=== PATIENT | male | born 1970 | race Caucasian/White ===

== ENCOUNTER → 2016-08-11 | Outpatient (CLI) | payer MEDICARE, OTHER ==
[~2016-08-11] MED LIST: ABILIFY2 MG PO; ABILIFY5 MG PO; ACETAMINOPHEN PO; ACTOS PO; ALLEGRA ALLERG180 MG PO; ALLEGRA PO; ALLEGRA180 MG PO; AMARYL PO; AMIODARONE PO; ANIMAL SHAPES1 EAC2 PO; ASCORBIC ACID500 M2 PO; ASPIRIN EC81 M1 PO; ASPIRIN PO; ASPIRIN81 M2 PO; ASPIRIN81 MG PO; BACLOFEN10 MG PO; CALCIUM 600 +1 EAC3 PO; CELEXA10 MG PO; CERTAGEN PO; CLARITIN10 MG PO; COZAAR PO; CRESTOR PO; CRESTOR10 MG PO; CYMBALTA PO; CYMBALTA30 MG PO; DEPO-TESTOTERO100 MG IM; DESONIDE TP; EXENATIDE INJ; FENOFIBRATE160 MG; FENOFIBRATE160 MG PO; FERROUS SULFATE1 TAB PO; FISH OIL 1,0001 CAP PO; FISH OIL500 MG; FISH-FLAX-BORA1 EACH PO; FLAXSEED-FISH-400 MG PO; GNP TRIPLE OME1 EACH PO; HUMALOG100 U/ML SUBQ; HYDROCODON-ACE1 EAC5 PO; IBUPROFEN PO; INVOKANA100 MG PO; IRON SUPPLEMENT1 TAB PO; IRON TABLETS1 TAB PO; LANTUS SOLOSTAR3 ML SUBQ; LEVEMIR FL100 UNIT/1 SUBQ; LEVEMIR SUBQ; LEVEMIR100 U/ML SUBQ; LEVOFLOXACIN500 MG PO; LIDODERM; LIDODERM30 EA; LIDODERM30 EA TOP; LIPITOR PO; LISINOPRIL PO; LISINOPRIL20 MG; LOPID600 MG PO; LORTAB 10-3251 EACH PO; MAPAP ARTHRITI650 M1 PO; METFORMIN PO; METOPROLOL TAR25 MG; METOPROLOL TAR25 MG PO; MOTRIN400 MG PO; MUCINEX DM1 TAB.SR . PO; MULTI-DAY VITAM1 TAB PO; MULTIPLE VITAM1 EAC1; MULTIPLE VITAMI1 T11 PO; NORCO 10/325 TA1 TAB PO; NORTRIPTYLINE H50 MG PO; NORVASC PO; NOVOLIN 70100 UNITS/ SUBQ; NOVOLOG FL100 UNIT/1 SUBQ; NOVOLOG100 U/M2 SUBQ; NOVOLOG100 UNIT/1; NOVOLOG7030; NOVOLOG7030 SUBQ; OMEGA 3-6-9 CO400 MG PO; OXYGEN; PANTOPRAZOLE SO40 MG; PERCOCET 10/3251 TAB; PERCOCET 10/3251 TAB PO; PERCOCET10 PO; PHENERGAN12.5 MG PO; PINDOLOL10 MG PO; PRINIVIL20 M1 PO; PROLIA60 MG/1 ML; PROLIA60 MG/1 ML INJ; PROTONIX PO; ROXICODONE30 M1 PO; SENNA S TABLET1 TAB PO; SENNA-S TABLET1 EAC1 PO; SENNA-S TABLET1 EACH PO; SENNA8.6 M1 PO; SERTRALINE HCL100 MG; SINGULAIR PO; SINGULAIR4 MG PO; SKELAXIN PO; STARLIX PO; SUDAFED PO; TAGAMET PO; TESTOSTERON100 MG/ML INJ; TOBREX5 ML OP; TRESIBA FL100 UNIT/1; TRICOR PO; TYLENOL ARTHRITIS; VICTOZA0.6 MG/0.1; VICTOZA0.6 MG/0.1 INJ; VITAMIN C; VITAMIN D 4001 UDTAB PO; VITAMIN D31000 UNI1 PO; VITAMIN D31000 UNIT PO; WELLBUTRIN SR PO; WELLBUTRIN SR150 MG PO; ZANAFLEX PO; ZOLOFT100 MG PO
== END | disposition home or self-care (01) ==
LOC: SLAB 09:49
DX: E87.5 Hyperkalemia (principal)
CPT/HCPCS: 36415; 84132

== ENCOUNTER → 2016-12-06 | Outpatient (CLI) | payer MEDICARE, OTHER ==
[2016-12-06 12:30] LABS: BASOPHIL# 0.1 X10e3 (0-0.3); BASOPHIL% 0.9 % (0-2.5); EOSINOPHIL# 0.6 X10e3 (0-0.7); EOSINOPHIL% 3.5 % (0.0-7.0); HEMATOCRIT 44.9 % (38.0-50.0); HEMOGLOBIN 14.6 gm/dL (13.0-16.0); LYMPHOCYTE# 5.5 X10e3 (1.0-3.5); LYMPHOCYTE% 34.7 % (17.0-45.0); MEAN CELL VOLUME 93.7 FL (83-96); MEAN CORPUSCULAR HEMOGLOBIN 30.4 PG (28-34); MEAN CORPUSCULAR HGB CONC 32.4 g/dL (30-36); MEAN PLATELET VOLUME 9.5 FL (6.5-11.5); MONOCYTE# 1.1 X10e3 (0-1.0); MONOCYTE% 6.7 % (3.0-12.0); NEUTROPHIL# 8.6 X10e3 (1.5-7.1); NEUTROPHIL% 54.2 % (40-75); PLATELET COUNT 439 X10e3 (140-420); RED BLOOD COUNT 4.79 X10e (3.90-5.60); RED CELL DISTRIBUTION WIDTH 13.6 % (11.0-15.5); WHITE BLOOD COUNT 15.9 X10e3 (4.0-10.5)
[2016-12-06 12:42] LABS: DIFF IND NO
[2016-12-06 12:56] LABS: ALBUMIN SERUM 3.8 g/dL (3.5-5.0); BILIRUBIN,TOTAL 0.3 mg/dL (0.2-2.0); BUN/CREATININE RATIO 22.3; CALCIUM SERUM 9.6 mg/dL (8.4-10.2); CREATININE SERUM 1.3 mg/dL (0.6-1.4); GLOM FILT RATE Estimated 65.5 mL/min (>60); POTASSIUM 4.8 mmol/L (3.5-5.1); PROTEIN TOTAL SERUM 7.5 g/dL (6.0-8.3)
[2016-12-06 13:19] LABS: THYROID STIMULATING HORMONE 1.18 uIU/ml (0.34-5.60)
[2016-12-06 14:39] LABS: FREE THYROXIN (T4) 0.94 ng/dL (0.58-1.64)
== END | disposition home or self-care (01) ==
LOC: SLAB 12:17
PROVIDERS: Specialist
DX: E55.9 Vitamin D deficiency, unspecified (principal); E11.65 Type 2 diabetes mellitus with hyperglycemia; I10 Essential (primary) hypertension
CPT/HCPCS: 36415; 80053; 80061; 82306; 83036; 84439; 84443; 85025

== ENCOUNTER 2017-01-06 10:49 | Inpatient (IN) | payer MEDICARE, OTHER ==
[~2017-01-06] VITALS: Ht 172.7 cm; Wt 104.4 kg
--- NOTE | ~2017-01-06 | CR63 ---
[facility] RADIOLOGY TEXT RESULTS PATIENT: CATRINA GAMBOA LOCATION: [facility] 309-01 : 70 UNIT #: [id number] AGE: [address]: ELISA TERRY MD SEX: M ORDER DR: [id number] [id number] E MR#: [id number] Acc #: [id number] NAME: CATRINA GAMBOA : 1970 SEX: M STUDY DATE/TIME: 01/06/2017 12:05 UNIT: SED ROOM: STUDY DESCRIPTION: CR Chest 2 View Attending Physician: Terrell Hendrix M.D. Ordering Physician: Terrell Hendrix M.D. Primary Care Physician: Augusto Solis M.D. MEDICAL IMAGING REPORT This report is preliminary unless electronic signature is present. EXAM Chest x-ray. HISTORY Tachycardia with cough for the past 2 days. COMPARISON 01/17/2014 TECHNIQUE Two views of the chest were obtained. FINDINGS There is an old compression fracture across the thoracolumbar junction unchanged from the previous examination with exaggerated kyphosis. Cardiomegaly is noted with a tortuous aorta. In the lungs pulmonary vascular markings are prominent with redistribution toward the upper lobes noted. This has increased slightly since the previous exam. No new infiltrates or effusions are seen. Cardiomegaly is noted and unchanged. IMPRESSION Cardiomegaly with mild pulmonary vascular congestion. Pulmonary vascular redistribution shows slight worsening since the previous examination. No effusions are seen. Dictated by... Francisco Spence M.D. THIS IS AN ELECTRONICALLY VERIFIED REPORT Francisco Spence M.D. at 01/09/2017 11:44 AM RLF/jt [facility] RADIOLOGY TEXT RESULTS PATIENT: CATRINA GAMBOA LOCATION: [facility] 309-01 : 70 UNIT #: [id number] AGE: [address]: ELISA TERRY MD SEX: M ORDER DR: TD: 01/06/2017 17:28 JOB #: [id number] MEDICAL IMAGING REPORT Page 1 of 1
--- NOTE | ~2017-01-06 | HP ---
Unit #: [id number] #: [id number] Patient: CATRINA GAMBOA [id number] [place], [place] [address] [id number] I MR#: [id number] NAME: CATRINA GAMBOA ROOM: 309 Age: 46 Sex: M Admission Date: 01/06/2017 : 1970 Attending Physician: Elisa Gil M.D. Primary Care Physician: Augusto Solis M.D. HISTORY AND PHYSICAL CHIEF COMPLAINT Palpitations. HISTORY OF PRESENT ILLNESS The patient is a 46-year-old male with history of autoimmune hemolytic anemia and mental retardation. Presented to the [facility] complaining of the palpitations and not feeling well for the last 2-3 days. The patient also complained of the cough associated with a low-grade fever and shortness of breath. The patient was diagnosed with left basilar pneumonia versus mild CHF at [facility] and transferred to [place] for further evaluation. The patient denies any fever and denies any chills. Positive for the nonproductive cough and is not on oxygen. The chest x-ray shows the patient has a pulmonary vascular congestion. However, the patient has been in and out of the bigeminy with the tachycardia on telemetry on the unit. PAST MEDICAL HISTORY History of autoimmune hemolytic anemia, diabetes, mental retardation, depression, anxiety, chronic kidney disease, allergic rhinitis, and hyperlipidemia. PAST SURGICAL HISTORY History of a right foot osteomyelitis, right thumb surgery, tonsillectomy, splenectomy, left knee fracture, patellar tendon (1) , ear tubes, and right shoulder surgery. MEDICATIONS Patient is on: 1. Abilify. 2. Acetaminophen. 3. Aspirin. 4. Baclofen. 5. Lortab. 6. Nortriptyline. 7. Protonix. 8. Prinivil. 9. Metoprolol. 10. Lipitor. 11. TriCor. 12. Iron tablets. 13. Nalcrest acids. 14. Multivitamin. 15. Singulair. 16. Starlix. Unit #: [id number] #: [id number] Patient: CATRINA GAMBOA 17. NovoLog. 18. Oxygen. 19. Cymbalta. 20. Insulin. 21. Phenergan. 22. Prolia. 23. Pseudoephedrine. 24. Ascorbic acid. 25. Vitamin D3. 26. Victoza. ALLERGIES He has no known drug allergies. SOCIAL HISTORY He lives at home. His mother is the guardian. He has 24/7 care with a nurse and family. He does not smoke or consume alcohol. FAMILY HISTORY Reviewed and none. REVIEW OF SYSTEMS Positive for the palpitations. Positive for cough. Positive for shortness of breath. Denies dizziness. Denies headache. Denies nausea and vomiting. Denies abdominal pain. Other systems reviewed and none, except as mentioned above. PHYSICAL EXAMINATION GENERAL APPEARANCE: The patient is lying on the bed not in acute distress. VITAL SIGNS: Temperature 98.4, pulse 120, respiratory rate 24, blood pressure 154/85, and satting 98% at room air. HEENT: Head atraumatic and normocephalic. Pupils are equal, round, and reactive to light and accommodation. Extraocular movements are intact. NECK: Supple. LUNGS: Decreased air entry at the bases. No rhonchi. No wheezing. HEART: Regular rate and rhythm. Tachycardic. ABDOMEN: Soft. Positive bowel sounds. EXTREMITIES: No cyanosis. No clubbing. NEUROLOGIC: Alert, awake, and oriented. No gross focal motor deficit. DIAGNOSTIC STUDIES LABORATORY: WBC 16.9, hemoglobin 14.1, hematocrit 42.4, and platelets 443. Troponin less than 0.05. Lactic acid 1.2. Sodium 136, potassium 4.3, chloride 103, bicarb 25, glucose 285, BUN 20, creatinine 1.2, AST 19, ALT 21, and magnesium is 1.8. INR is 0.9. D-dimer is 180. TSH is 1.13. BNP is 117. UA is negative for bacteria. IMAGING: Chest x-ray shows cardiomegaly with mild pulmonary vascular congestion. Pulmonary vascular redistribution shows slight worsening since the previous examination. No effusions are seen. ASSESSMENT AND PLAN 1. Pulmonary vascular congestion. 2. Bigeminy. Plan to admit the patient to the observation with telemetry. Continue with IV antibiotics with Rocephin and Zithromax. He will have a Unit #: [id number] #: [id number] Patient: CATRINA GAMBOA cardiology consult with Dr. Yang who has seen in the past. Replace the electrolytes and replace the magnesium, 200 mg p.o. x1. Check the CBC and BMP in the morning. Continue with the sliding scale and Accu-Cheks. Further recommendations will follow. Dictated by Selvin Contreras TD: 01/07/2017 06:14 JOB #: [id number] HISTORY AND PHYSICAL Page 1 of 1 X ELISA GIL MD X HISTORY AND PHYSICAL
--- NOTE | ~2017-01-06 | EKG ---
PATIENT: CATRINA GAMBOA UNIT #: [id number] Ventricular Rate: 117 BPM Atrial Rate: 117 BPM P-R Interval: 166 ms QRS Duration: 88 ms Q-T Interval: 334 ms QTC Calculation(Bezet): 465 ms P [place]: 24 degrees Calculated R [place]: -5 degrees Calculated T [place]: 28 degrees Diagnosis Line: Sinus tachycardia with frequent Premature Diagnosis Line: ventricular complexes Diagnosis Line: Possible Left atrial enlargement Diagnosis Line: Left ventricular hypertrophy Diagnosis Line: Abnormal ECG Diagnosis Line: When compared with ECG of 23-SEP-2015 19:57, Diagnosis Line: Premature ventricular complexes are now Present Diagnosis Line: Confirmed by KWADWO MARSHALL MD ([id number]) on Diagnosis Line: 01/14/2017 3:16:58 PM INTERPRETING MD: JORDAN
--- NOTE | ~2017-01-06 | CO ---
Unit #: [id number] #: [id number] Patient: CATRINA GAMBOA [id number] [facility]. [place], [place] [address] [id number] I MR#: [id number] NAME: CATRINA GAMBOA ROOM: 309 Age: 46 Sex: M Admission Date: 01/06/2017 : 1970 Attending Physician: Alondra Gil M.D. Primary Care Physician: Augusto Solis M.D. CONSULTATION REPORT REASON FOR CONSULTATION REQUEST Palpitations. HISTORY OF PRESENT ILLNESS Mr. Griggs is a 46-year-old male, seen in room 309 with his he is a special needs gentleman, whom I see in the office, he will very much like to dictate his care. He has a history of fever with white count, systemic inflammatory response, autoimmune hemolytic anemia, and type 2 diabetes, and is admitted with pneumonia and palpitations. He states that he tried to get into see me today, but could not because of my office booking. He then presented to the hospital. He notes to me palpitations whenever he walks. He also notes mild dyspnea, but no chest pain, diaphoresis, or nausea. He has a history of oxygen use at night, and I had recommended CPAP therapy for him, but he has refused steadfastly. He has not had any PND, orthopnea, syncope or presyncope, angina or anginal equivalent, edema, or claudication as best I can tell. Heart rate showed in the hospital had been in the 119 range. Weight has gone up from 219 to 240 pounds in the past, and currently his weight is 233 pounds. PAST MEDICAL HISTORY 1. Fever with white count in the past, systemic inflammatory response syndrome. 2. Autoimmune hemolytic anemia. 3. Type 2 diabetes. 4. Moderate obesity. 5. Mental retardation. 6. History of acute kidney injury. 7. History of toxic metabolic encephalopathy. 8. Likely obstructive sleep apnea. 9. Difficult to control hypertension. FAMILY HISTORY Positive for premature atherosclerotic disease. Father at age 73. SOCIAL HISTORY Lives at home, caregiver 6 days a week and mother takes care of him at night. Lifelong nonsmoker. No alcohol. No drugs. Unit #: [id number] #: [id number] Patient: CATRINA GAMBOA REVIEW OF SYSTEMS I do not think an accurate review of systems is obtainable. MEDICATIONS Abilify, acetaminophen, aspirin, baclofen, Lortab 10, nortriptyline, Protonix, Prinivil 20 b.i.d., metoprolol 25 b.i.d., Lipitor 10 mg daily, Tricor 165 mg q.h.s., multivitamin, Singulair, Starlix, NovoLog, oxygen at night, Cymbalta, Lidoderm, Tresiba, Phenergan, Prolia, pseudoephedrine, ascorbic acid, vitamin D3, Victoza. PHYSICAL EXAMINATION GENERAL: Pleasant, alert, in no acute distress. VITAL SIGNS: Weight 233 pounds, height 5 feet 8 inches, BMI 36, blood pressure 160/90, heart rate is 59 and regular, respiratory rate is 16. Heart rate increased to 134 while he was walking, 124 before walking and after walking. SKIN: Warm and dry. No xanthelasma. MUSCULOSKELETAL: No missing digits. Moves easily for evaluation. NEUROLOGICAL: Appropriate mood and affect. Alert and oriented x3. HEENT: Pupils equal, round and reactive. No oral cyanosis. No icterus. NECK: Carotids clear to auscultation with no carotid bruits. Normal carotid upstroke bilaterally. Thyroid is normal in size and texture without masses or tenderness. CHEST: Clear to auscultation with no rales or wheezes. Good effort. CARDIAC: Normal point of maximum impulse. Normal S1 and S2. No S3, S4 or rub. ABDOMEN: No hepatosplenomegaly, masses or tenderness. Normal bowel sounds. No abdominal bruits heard. EXTREMITIES: No clubbing, cyanosis or edema. Excellent posterior tibial and dorsalis pedis pulses. DIAGNOSTIC STUDIES CARDIOVASCULAR STUDIES: I have reviewed the ECG which showed no acute ST changes. LABORATORY RESULTS: Creatinine is 1.2, potassium 4.3, magnesium 1.8. TSH 1.13. White blood count 16.9, hemoglobin 14.1, platelet count 443,000. Urinalysis is negative except for glucose. IMAGING STUDIES: Chest x-ray, cardiomegaly with vascular congestion. No effusions. IMPRESSION 1. Palpitations with tachycardia, likely obstructive sleep apnea, possible pneumonia. I suspect he is holding a fair amount of fluids. Belly appears distended. We will keep him on the Lopressor as dosed. We will add Cardizem 60 mg daily. We will check an echo in the morning. We will start Lasix tonight and weigh him everyday. We will restrict fluids. 2. Although he does not have any edema and he was holding water in his abdomen, this is aggravating the tachycardia. Chest x-ray did not suggest pneumonia, but this may be present based on the history. We will add Cardizem 60 mg q.6 hours, which can be made into a once daily dose. Thank you very much for this consultation. Dictated by... Jorge Yang M.D. Unit #: [id number] #: [id number] Patient: CATRINA GAMBOA TALYAR/modl TD: 01/07/2017 03:45 JOB #: [id number] CC: Augusto Solis M.D. CONSULTATION REPORT Page 1 of 1 X Jorge Yang MD X CONSULTATION REPORT
--- NOTE | ~2017-01-06 | DS ---
Unit #: [id number] #: [id number] Patient: CATRINA GAMBOA [id number] [place], [place] [address] [id number] I MR#: [id number] NAME: CATRINA GAMBOA ROOM: 309 Age: 46 Sex: M Admission Date: 01/08/2017 : 1970 Discharge Date: 01/08/2017 Attending Physician: Alondra Gil M.D. Primary Care Physician: Augutso Solis M.D. DISCHARGE SUMMARY PRINCIPAL DIAGNOSES ON DISCHARGE 1. Frequent ventricular ectopy, bigeminy. 2. Community-acquired pneumonia. 3. Volume overload. 4. Acute on chronic kidney injury. SECONDARY DIAGNOSES 1. Diabetes. 2. Hypertension. 3. History of autoimmune hemolytic anemia. 4. History of mental retardation. 5. Leukocytosis. HISTORY OF PRESENT ILLNESS/BRIEF HOSPITAL COURSE Mr. Gamboa is a 46-year-old gentleman with some degree of mental retardation who presented initially to [facility] complaining of palpitations and not feeling well for the previous 48 hours. Also, apparently a low grade fever and shortness of breath. The patient was diagnosed with a left basilar pneumonia versus mild CHF and was transferred over here. The patient was started on IV antibiotics with ceftriaxone and azithromycin. He also was noted to have some degree of pulmonary venous congestion and was on bigeminy. His troponin was normal. Cardiology was consulted and the patient was started on Cardizem at a dose of 6 mg four times a day. He was also diuresed. With this intervention, the patient's symptoms improved gradually. Unfortunately, secondary to his diuresis, the patient's creatinine increased from 1.2 to 1.5. The patient's metoprolol also was increased from 25 to 50 mg twice a day today. Cardiology also obtained a 2D echocardiogram. The results of this are pending at this time. The patient clinically has improved and is considered to be medically stable to be discharged home with close followup by his primary care physician and by cardiology. I have gone over the events of the hospitalization with the patient's mother and also gone over the discharge medications with her. MEDICATIONS UPON DISCHARGE 1. Cymbalta 30 mg p.o. daily. 2. Nortriptyline 50 mg p.o. q. h.s. 3. Starlix 120 mg p.o. q. h.s. 4. Metoprolol 50 mg p.o. b.i.d. 5. TriCor 165 mg p.o. q. h.s. 6. Lipitor 10 mg p.o. q. h.s. 7. Lisinopril 20 mg p.o. b.i.d. 8. Insulin Tresiba U-100, 110 units q. a.m. 9. NovoLog 45 units subcu with breakfast and lunch and 68 units with Unit #: [id number] #: [id number] Patient: CATRINA GAMBOA. 10. Ferrous sulfate one tablet daily. 11. Singulair 10 mg q. h.s. 12. Multivitamins, one tablet daily. 13. Aspirin 81 mg daily. 14. Protonix, one tablet p.o. daily. 15. Baclofen 10 mg p.o. b.i.d. 16. Victoza 1.8 units q. a.m. 17. Vitamin D3 1000 units p.o. daily. 18. Ascorbic acid, one tablet daily. 19. The patient is also using Phenergan, Tylenol and Lortab p.r.n. 20. Also, levofloxacin 500 mg, one tablet p.o. daily for three more days. DISPOSITION The patient is being discharged home. DIET Diabetic and heart healthy diet. ACTIVITY As tolerated. CONDITION Improved. FOLLOWUP APPOINTMENTS The patient is to follow up with his primary care physician, Dr. Solis, in one to two weeks and follow up with his disability attorney, Dr. Yang, in three to four weeks. Dictated by... Ron Anders M.D. DYLAN/marilynn TD: 01/09/2017 06:52 JOB #: [id number] DISCHARGE SUMMARY Page 1 of 1 X X DISCHARGE SUMMARY
[~2017-01-06 10:49] MED LIST changes: -LEVOFLOXACIN500 MG PO; -PHENERGAN12.5 MG PO; -PROLIA60 MG/1 ML; -SUDAFED PO; -TRESIBA FL100 UNIT/1; -VICTOZA0.6 MG/0.1; -VITAMIN C; -VITAMIN D31000 UNIT PO
[2017-01-06] MEDS ORDERED: TRESIBA FL100 UNIT/1 (10:52)
[2017-01-06 11:56] LABS: BASOPHIL% 0.3 % (0-2.5); EOSINOPHIL# 0.4 X10e3 (0-0.7); EOSINOPHIL% 2.7 % (0.0-7.0); HEMATOCRIT 42.4 % (38.0-50.0); HEMOGLOBIN 14.1 gm/dL (13.0-16.0); LYMPHOCYTE# 4.6 X10e3 (1.0-3.5); LYMPHOCYTE% 27.3 % (17.0-45.0); MEAN CELL VOLUME 93.4 FL (83-96); MEAN CORPUSCULAR HGB CONC 33.2 g/dL (30-36); MONOCYTE# 1.6 X10e3 (0-1.0); MONOCYTE% 9.6 % (3.0-12.0); NEUTROPHIL# 10.2 X10e3 (1.5-7.1); NEUTROPHIL% 60.1 % (40-75); PLATELET COUNT 443 X10e3 (140-420); RED BLOOD COUNT 4.54 X10e (3.90-5.60); RED CELL DISTRIBUTION WIDTH 13.9 % (11.0-15.5); WHITE BLOOD COUNT 16.9 X10e3 (4.0-10.5)
[2017-01-06 11:59] LABS: DIFF IND NO
[2017-01-06 12:06] LABS: POC - CKMB 4.4 ng/mL (0.0-7.9)
[2017-01-06 12:07] LABS: POC - TROPONIN <0.05 ng/mL (<=0.05)
[2017-01-06 12:09] LABS: INR 0.9; PROTHROMBIN TIME (PATIENT) 10.2 SECONDS (9.5-12.4)
[2017-01-06 12:16] LABS: PARTIAL THROMBOPLASTIN TIME 32.2 SECONDS (25.6-38.1)
[2017-01-06 12:17] LABS: ALBUMIN SERUM 3.6 g/dL (3.5-5.0); BILIRUBIN, DIRECT 0.1 mg/dL (0.0-0.2); BILIRUBIN,INDIRECT 0.4 mg/dL (0.0-0.9); BILIRUBIN,TOTAL 0.5 mg/dL (0.2-2.0); BUN/CREATININE RATIO 16.66; CALCIUM SERUM 8.8 mg/dL (8.4-10.2); CREATININE SERUM 1.2 mg/dL (0.6-1.4); GLOM FILT RATE Estimated 72.1 mL/min (>60); MAGNESIUM 1.8 mg/dL (1.6-3.0); POTASSIUM 4.3 mmol/L (3.5-5.1); PROTEIN TOTAL SERUM 6.6 g/dL (6.0-8.3)
[2017-01-06 14:22] LABS: URINE SOURCE CLEAN CATCH
[2017-01-06 14:24] LABS: URINE APPEARANCE CLEAR; URINE BILIRUBIN NEG (NEG); URINE BLOOD NEG (NEG); URINE COLOR YELLOW; URINE GLUCOSE 300 MG/DL (NORM); URINE KETONE NEG (NEG); URINE LEUKOCYTE ESTERASE NEG (NEG); URINE NITRATE NEG (NEG); URINE PH 5.5 (5-8); URINE UROBILINOGEN 0.2 MG/DL (NORM)
[2017-01-06 14:26] LABS: URINE PROTEIN NEG (NEG)
[2017-01-06 14:27] LABS: MICRO INDICATED? NO
[2017-01-06] MEDS ORDERED: PHENERGAN12.5 MG PO (17:13)
[2017-01-06] MEDS ORDERED: PROLIA60 MG/1 ML (17:13)
[2017-01-06] MEDS ORDERED: SUDAFED PO (17:14)
[2017-01-06] MEDS ORDERED: VITAMIN D31000 UNIT PO (17:14)
[2017-01-06] MEDS ORDERED: VITAMIN C (17:14)
[2017-01-06] MEDS ORDERED: VICTOZA0.6 MG/0.1 (17:15)
[2017-01-07 05:53] LABS: BASOPHIL# 0.2 X10e3 (0-0.3); BASOPHIL% 1.2 % (0-2.5); EOSINOPHIL% 0.2 % (0.0-7.0); HEMATOCRIT 41.4 % (38.0-50.0); HEMOGLOBIN 13.7 gm/dL (13.0-16.0); LYMPHOCYTE% 26.7 % (17.0-45.0); MEAN CELL VOLUME 92.9 FL (83-96); MEAN CORPUSCULAR HEMOGLOBIN 30.6 PG (28-34); MEAN PLATELET VOLUME 9.8 FL (6.5-11.5); MONOCYTE# 1.4 X10e3 (0-1.0); MONOCYTE% 7.3 % (3.0-12.0); NEUTROPHIL# 12.2 X10e3 (1.5-7.1); NEUTROPHIL% 64.6 % (40-75); PLATELET COUNT 441 X10e3 (140-420); RED BLOOD COUNT 4.46 X10e (3.90-5.60); RED CELL DISTRIBUTION WIDTH 13.9 % (11.0-15.5); WHITE BLOOD COUNT 18.9 X10e3 (4.0-10.5)
[2017-01-07 05:54] LABS: DIFF IND YES
[2017-01-07 06:09] LABS: CREATININE SERUM 1.4 mg/dL (0.6-1.4); GLOM FILT RATE Estimated 59.9 mL/min (>60); MAGNESIUM 2.2 mg/dL (1.6-3.0)
[2017-01-07 08:50] LABS: PLATELET ESTIMATE INCREASED (NORMAL)
[2017-01-08 06:32] LABS: HEMATOCRIT 45.4 % (38.0-50.0); HEMOGLOBIN 14.5 gm/dL (13.0-16.0); MEAN CELL VOLUME 93.9 FL (83-96); MEAN PLATELET VOLUME 10.3 FL (6.5-11.5); RED BLOOD COUNT 4.84 X10e (3.90-5.60); RED CELL DISTRIBUTION WIDTH 13.9 % (11.0-15.5); WHITE BLOOD COUNT 16.6 X10e3 (4.0-10.5)
[2017-01-08 07:13] LABS: BUN/CREATININE RATIO 20.66; CALCIUM SERUM 9.4 mg/dL (8.4-10.2); CREATININE SERUM 1.5 mg/dL (0.6-1.4); GLOM FILT RATE Estimated 55.1 mL/min (>60); MAGNESIUM 2.1 mg/dL (1.6-3.0); POTASSIUM 4.5 mmol/L (3.5-5.1)
[2017-01-08] MEDS ORDERED: LEVOFLOXACIN500 MG PO (16:29)
== END 2017-01-08 18:03 | disposition home or self-care (01) | DRG 314 ==
LOC: SED 10:49 → C3A PCU 15:50 → SED 15:50 → C3A PCU 15:50 → SED 19:00 → C3A PCU 19:00 → SED 01-08 15:23 → C3A PCU 01-08 15:23
PROVIDERS: Emergency Medicine; Internal Medicine
DX: R00.8 Other abnormalities of heart beat (principal); J18.9 Pneumonia, unspecified organism; N17.9 Acute kidney failure, unspecified; E87.70 Fluid overload, unspecified; E11.22 Type 2 diabetes mellitus with diabetic chronic kidney disease; D59.1 Other autoimmune hemolytic anemias; I12.9 Hypertensive chronic kidney disease with stage 1 through stage 4 chronic kidney disease, or unspecified chronic kidney disease; N18.9 Chronic kidney disease, unspecified; Z79.4 Long term (current) use of insulin; E78.5 Hyperlipidemia, unspecified; F79 Unspecified intellectual disabilities; R00.0 Tachycardia, unspecified; G47.33 Obstructive sleep apnea (adult) (pediatric); Z79.82 Long term (current) use of aspirin; Z82.49 Family history of ischemic heart disease and other diseases of the circulatory system
CPT/HCPCS: 36415; 71020; 80048; 80076; 81003; 82553; 82947; 83605; 83735; 83880; 84443; 84484; 85025; 85027; 85379; 85610; 85730; 87040; 93005; 93306; 94640; 96361; 96365; 96375; 99285; J0456; J0696; J1650; J1815; J1940; J2930